=== PATIENT | female | born 1960 | race Caucasian/White ===

== ENCOUNTER 2023-02-06 09:40 | Outpatient (AMB) | payer OTHER, SELFPAY ==
--- NOTE | 2023-02-06 10:03 | MHC.PC.OV ---
Vital Signs 02/06/23 10:05 Height 5 ft 5 in Weight 237 lb 8 oz BMI 39.5 BP 124/66 Blood Pressure Location Lt brachial Position Sitting Pulse 57 Pulse Source Pulse Oximeter Pulse Oximetry (%) 97 Oxygen Delivery Method Room Air Intake Visit Reasons: New Patient/ Med review/ Ortho referral/ Lt wrist Intake Note: pt is here for new patient to establish care, needs medication review, ortho referral for left wrist Aix Administrator Required: No Accompanied by: Self / Same As Patient Allergies amoxicillin Adverse Reaction (Verified 02/06/23 10:24) rash bactrim Adverse Reaction (Uncoded 02/06/23 10:24) rash Medication List - Last Reconciled 02/06/23 by Ronda Sanchez MD cholecalciferol (vitamin D3) 25 mcg PO DAILY irbesartan 150 mg PO DAILY [id number]-yntc-FA-vit K-lut 8 mg iron-400 mcg-50 mcg (Centrum Silver Women) 1 tab PO DAILY Tobacco use date assessed: 02/06/23 Dental Screening Dental Screen Date: 02/06/23 Did you have a dental visit in the last 12 months?: No Did you have a dental problem in the last 6 months where you did not have access to dental care?: No Was dental information given to patient?: Patient declined HPI New Patient/ Med review/ Ortho referral/ Lt wrist HPI Details 62-year-old lady, with hypertension and superimposed white coat hypertension has prediabetes, obesity, new to practice, previously been seen at [facility] here to establish care with new PCP, and needs your referral to Orthopedics regarding does not pain in her left wrist joint. This has been present now for the last several years, worse on doing any rotational movements. She was taking Tylenol in the past which affords only temporary relief and has been seen by [facility], again with no improvement of symptoms reported [facility] Medical History (Updated 02/06/23 @ 10:55 by Ronda Sanchez MD) Obesity (BMI 30-39.9) Impaired fasting glucose Chronic pain of left wrist Hx of mammogram History of cholelithiasis Essential hypertension Surgical History (Updated 02/06/23 @ 10:33 by Ronda Sanchez MD) Hx of colonoscopy Hx laparoscopic cholecystectomy Family History (Updated 02/06/23 @ 10:42 by Ronda Sanhcez MD) Father Prostate CA Mother Embolism Deep vein thrombosis (DVT) of left lower extremity Insulin dependent type 1 diabetes mellitus Brother Diabetes mellitus CVA (cerebral vascular accident) Sister Thyroid disorder Social History (Updated 02/06/23 @ 10:09 by Kevin Pires [facility]) Housing: House Alcohol intake: current Alcohol intake frequency: holidays/special occasions only Alcohol type: wine Patient Tobacco Use Status: Former Tobacco user (01/14/1996) e-Cigarette/Vaping Use: Never Used service: No Current occupational status: employed and retired Current occupational exposures/hazards: No Cognitive needs: No Hearing needs: No Vision needs: Yes Female Reproductive History Menstrual Age of Menarche: 13 Menopause type: natural Age of menopause: 49 Date of last pap smear: 09/28/20 ([facility] ) History of abnormal pap smear: No Date of Mammogram: 09/15/22 (08/2021, 08/2020 - all normal - [facility] ) History of abnormal mammogram: No Questionnaire PHQ-9 Over the last 2 weeks, how often have you been bothered by any of the following problems? 1. Little interest or pleasure in doing things: not at all 2. Feeling down, depressed, or hopeless: not at all 3. Trouble falling or staying asleep, or sleeping too much: several days 4. Feeling tired or having little energy: not at all 5. Poor appetite or overeating: not at all 6. Feeling bad about yourself - or that you are a failure or have let yourself or your family down: not at all 7. Trouble concentrating on things, such as reading the newspaper or watching television: not at all 8. Moving or speaking so slowly that other people could have noticed. Or the opposite - being so fidgety or restless that you have been moving around a lot more than usual: not at all 9. Thoughts that you would be better off or of hurting yourself in some way: not at all Total score: 1 Depression Screening Interpretation: Negative 93922 - PHQ-9 Billing: Yes Source: Developed by Drs. Les Ag, Renata Perdomo, Tanner Ren and colleagues, with an educational rupesh from [employer]. Thrive Questionnaire Date Thrive assessed: 02/06/23 I am a: Patient What is your living situation today?: I have a steady place to live Within the past 12 months, did the food you bought not last and you didn't have the money to get more?: Never true Within the past 12 months, did you worry whether your food would run out before you got money to buy more?: Never true Do you have trouble paying for medicines?: No Do you have trouble getting transportation to medical appointments?: No Do you have trouble paying your heating and electricity bill?: No Do you have trouble taking care of your child, family member or friend?: No Do you have trouble with day-to-day activities such as bathing, preparing meals, shopping, managing finances, etc.?: No Are you currently unemployed and looking for a job?: No Are you interested in more education?: No Please select the resources that you would like help with: None Currently or been in a relationship where the following occur: no concerns reported AUDIT C Alcohol Use Questionnaire (AUDIT-C) 1. How often do you have a drink containing alcohol?: Monthly or less 2. How many drinks containing alcohol do you have on a typical day when you are drinking?: 1 or 2 3. How often do you have six or more drinks on one occasion?: Never Total Score: 1 GARRY-7 AMB Questionnaire GARRY-7 Date GARRY - 7 assessed: 02/06/23 Feeling nervous, anxious, or on edge: 0 = Not at all Not being able to stop or control worryin = Not at all Worrying too much about different things: 0 = Not at all Trouble relaxin = Not at all Being so restless that it is hard to sit still: 0 = Not at all Becoming easily annoyed or irritable: 0 = Not at all Feeling afraid as if something awful might happen: 0 = Not at all Total GARRY-7 score (0-4 normal; 5-9 mild; 10-14 moderate; 15-21 severe): 0 Source: Developed by Drs. Les Ag, Renata Perdomo, Tanner Ren and colleagues, with an educational rupesh from [employer]. GARRY-7 Assessment Billing GARRY-7 Assessment Tool: GARRY-7 Assessment 71096 Review of Systems Const Denies chills, Denies fatigue, Denies fever(s), Denies headache(s) and Denies weakness Eyes Details: Dr Luis Pappas , [place] with eye exam 06/2022 ( [facility]) Denies change in vision, Denies eye discharge and Denies itchy eyes ENT Denies dizziness, Denies headache(s), Denies nasal congestion, Denies nasal discharge and Denies sore throat Card Denies chest pain, Denies lightheadedness, Denies palpitations and Denies dyspnea Resp Denies chest congestion, Denies cough, Denies dyspnea and Denies wheezing GI Denies abdominal pain, Denies change in bowel habits and Denies heartburn Denies hematuria, Denies urinary frequency, Denies dysuria and Denies urinary urgency Musc Reports as per HPI Skin/Breast Denies breast pain, Denies breast mass, Denies lesions and Denies rash Neuro Denies dizziness, Denies headache(s) and Denies weakness Psych Denies no additional complaints Endo Denies fatigue and Denies palpitations Ye/Lymph Denies easy bruising Aller/Immun Denies itchy eyes, Denies seasonal rhinorrhea and Denies wheezing Physical exam (Primary Care) Vital Signs: Last Vital Signs Pulse 57 02/06/23 10:05 BP 124/66 02/06/23 10:05 Pulse Ox 97 02/06/23 10:05 Oxygen Delivery Method Room Air 02/06/23 10:05 BMI result Body Mass Index 39.5 Tobacco/Smoking Status: Tobacco use Status Tobacco use date assessed 02/06/23 02/06/23 10:10 Patient Tobacco Use Status Former Tobacco user (01/13/ 02/06/23 10:10 1995) e-Cigarette/Vaping Use Never Used 02/06/23 10:10 PHQ-9: PHQ-9 Score PHQ-9: Total score 1 02/06/23 10:57 Depression Screening Interpretation: Negative Thrive Assessment: Date of Thrive Assessment Date Thrive assessed 02/06/23 02/06/23 10:14 Currently or been in a relationship where the following occur: no concerns reported Const General: no acute distress and alert Orientation/consciousness: patient oriented x3 HENMT Head: Yes normocephalic Ears: external ears normal, TM's normal bilaterally and EAC's normal General nose exam: Normal external nose present and No nasal discharge present Face and sinus: Yes face symmetric Mouth: Normal oral and palatal mucosa present, oropharynx normal and moist mucous membranes Eyes General: appearance normal, both eyes and all related structures Eyelids: Yes eyelids normal Conjunctivae: conjunctivae normal Sclerae: sclerae normal Pupils: Equal, round and reactive pupils present EOM: EOMs intact bilaterally Neck Neck: Yes full ROM, Yes no lymphadenopathy and Yes supple Resp Effort & Inspection: normal respiratory effort and able to speak in complete sentences Auscultation: clear to auscultation bilaterally Cardio Rate: regular rate Rhythm: regular rhythm Heart sounds: S1 normal heart sound present and S2 normal heart sound present GI Palpation (GI): Soft to palpation, nontender, no guarding and no masses Auscultation: normal bowel sounds Skin General skin exam: no rashes or lesions noted Neuro General: patient oriented x3, gait normal, moves all extremities, Normal light touch and pain sensation, no focal motor deficits and CN's II-XI intact bilaterally Cranial nerves: Yes Equal, round and reactive pupils present Cognition (Neuro): normal cognition Gait exam (Neuro): Normal gait present Motor exam (neuro): 5/5 motor strength present throughout Extrem Other: Pain with range of motion left wrist joint, no gross bone deformity or joint swelling seen General: Yes normal to inspection, Yes no pedal edema and Yes normal gait Psych Appearance: grossly normal and well kempt Mental Status: mental status grossly normal Speech and movement: Normal speech and movement present Affect: normal affect Attitude: cooperative Thought process: Normal thought process present Thought content: Normal thought content present Insight: Good insight present (Psych) Judgement: Good judgement present (Psych) Assessment and Plan Assessment & Plan (1) Chronic pain of left wrist: Code(s): M25.532 - Pain in left wrist; G89.29 - Other chronic pain Plan: Referred to hand surgeon for further evaluation management (2) Colon cancer screening: Code(s): Z12.11 - Encounter for screening for malignant neoplasm of colon Plan: Referred to [facility] for her screening colonoscopy (3) Essential hypertension: Code(s): I10 - Essential (primary) hypertension Plan: Blood pressure at goal of less than 130/80. Continue with he irbesartan 150 mg daily Reinforced importance of following a low sodium diet, getting regular exercise, and lowering stress levels. (4) Impaired fasting glucose: Code(s): R73.01 - Impaired fasting glucose Plan: Fasting basic metabolic panel and hemoglobin A1c ordered. Impaired glucose metabolism O2 at risk for developing diabetes mellitus type 2, as well as heart attack and stroke later on. Lifestyle changes at just weight loss, healthy eating habits, and regular exercise are important, and can prevent the progression to diabetes (5) Obesity (BMI 30-39.9): Code(s): E66.9 - Obesity, unspecified Plan: Discussed need for increase activity and weight reduction. Recommended focusing on improving your health instead of dieting. : Eat Mediterranean diet, limit foods high in fat, sugar, and calories, eat slowly, pay attention to portion sizes, plan your meals ahead of time, start regular physical activity 150 minutes of moderate intensity exercise or 90 minutes/week of vigorous exercise and increase water intake. Orders: Orders Lipid Panel 02/06/23 R73.01 - Impaired fasting glucose, I10 - Essential (primary) hypertension, E66.9 - Obesity, unspecified, Z13.220 - Encounter for screening for lipoid disorders, Z78.0 - Asymptomatic menopausal state Vitamin D 25-OH Total 02/06/23 R73.01 - Impaired fasting glucose, I10 - Essential (primary) hypertension, E66.9 - Obesity, unspecified, Z13.220 - Encounter for screening for lipoid disorders, Z78.0 - Asymptomatic menopausal state Alanine Aminotransferase 02/06/23 R73.01 - Impaired fasting glucose, I10 - Essential (primary) hypertension, E66.9 - Obesity, unspecified, Z13.220 - Encounter for screening for lipoid disorders, Z78.0 - Asymptomatic menopausal state Hemoglobin A1c 02/06/23 R73.01 - Impaired fasting glucose, I10 - Essential (primary) hypertension, E66.9 - Obesity, unspecified, Z13.220 - Encounter for screening for lipoid disorders, Z78.0 - Asymptomatic menopausal state Basic Metabolic Panel Fasting 02/06/23 R73.01 - Impaired fasting glucose, I10 - Essential (primary) hypertension, E66.9 - Obesity, unspecified, Z13.220 - Encounter for screening for lipoid disorders, Z78.0 - Asymptomatic menopausal state Aspartate Amino Transferase 02/06/23 R73.01 - Impaired fasting glucose, I10 - Essential (primary) hypertension, E66.9 - Obesity, unspecified, Z13.220 - Encounter for screening for lipoid disorders, Z78.0 - Asymptomatic menopausal state Referrals Gastroenterology Referral Z12.11 - Encounter for screening for malignant neoplasm of colon Hand Surgery Referral M25.532 - Pain in left wrist, G89.29 - Other chronic pain Medications: New irbesartan 150 mg PO DAILY 90 tabs 4RF Coding Level of Care Code New Pt Level 3 (84001) Diagnoses Chronic pain of left wrist M25.532; G89.29 Colon cancer screening Z12.11 Essential hypertension I10 Impaired fasting glucose R73.01 Obesity (BMI 30-39.9) E66.9 Additional Codes GARRY-7 Assessment Billing - GARRY-7 Assessment Tool: GARRY-7 Assessment [id number] ([id number])
[2023-02-06 10:05] VITALS: BP 124/66; PULSE 57; O2SAT 97; BMI 39.5
== END 2023-02-06 11:02 | disposition home or self-care (01) ==
PROVIDERS: Visit Provider Internal Medicine
DX: M25.532 Pain in left wrist (principal); E66.9 Obesity, unspecified; Z68.39 Body mass index [BMI] 39.0-39.9, adult; I10 Essential (primary) hypertension; G89.29 Other chronic pain; R73.01 Impaired fasting glucose
CPT/HCPCS: 99203

== ENCOUNTER 2023-02-06 11:03 | Outpatient (REF) | payer OTHER, SELFPAY ==
[2023-02-06 13:45] LABS: Alanine Aminotransferase 22 U/L (0-31); Anion Gap 12 (12-20); Aspartate Amino Transferase 19 U/L (5-31); Blood Urea Nitrogen 15 mg/dL (9-16); Calcium 10.1 mg/dL (8.4-10.2); Carbon Dioxide 29 mmol/L (22-29); Chloride 104 mmol/L (96-108); Cholesterol 208 mg/dL; Estimated Glomerular Filt Rate 58; Glucose Fasting 109 mg/dL (60-99); HDL Cholesterol 64 mg/dL; LDL Cholesterol Calculated 131 mg/dl; Potassium 4.7 mmol/L (3.3-5.1); Sodium 140 mmol/L (135-145); Triglycerides 66 mg/dL
[2023-02-06 13:57] LABS: Estimated Average Glucose 120 mg/dL; Hemoglobin A1c % 5.8 %
[2023-02-06 14:05] LABS: Vitamin D 25-OH Total 65.4 ng/mL (>30)
== END 2023-02-06 11:04 | disposition home or self-care (01) ==
LOC: HO.HMGCLDS 11:03
PROVIDERS: PCP Internal Medicine; Visit Provider Internal Medicine
DX: Z13.220 Encounter for screening for lipoid disorders (principal); E66.9 Obesity, unspecified; I10 Essential (primary) hypertension; R73.01 Impaired fasting glucose; Z78.0 Asymptomatic menopausal state
CPT/HCPCS: 36415; 80048; 80061; 82306; 83036; 84450; 84460

== ENCOUNTER 2023-03-16 11:24 | Outpatient (AMB) | payer OTHER, SELFPAY ==
--- NOTE | 2023-03-16 11:26 | A.OFFVIS_ITS ---
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 Patient reports 6 weeks of OT with no relief. She states that she took 2 weeks of melacame which didn't help, also used medication cream. Hx of cortisone injections with no relief. Patient reports her pain is more on the volar aspect of the wrist and id she moves it a certain way she feels a burning sensation on her forearm. 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 The patient was followed by [facility], Dr. Fidel Marquez, in 05/2022. She was being treated for arthralgia of the ulna, radius, and wrist consistent with mild tendinitis along the wrist. At the time she had no signs to suggest inflammatory arthritis, per the clinic?s notes. She was working on an at home exercise program. She was later seen by a PCP on 02/06/2023 where she reported pain in the left wrist for several years with increased pain with rotational movements. She reports her pain is located more on the volar aspect of the left wrist. She claims she has a burning sensation in the left forearm. She reports increased pain in the last 2 weeks. She has been taking Aleve for the last two weeks. She states she has no pain when the wrist is straight but pressure with rotation of the wrist that radiates up the arm. 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 Patient confirms participating in 6 weeks of occupational therapy with no relief. Patient confirms the use of Meloxicam for 2 months with no relief. The use of medicated topical cream. Patient has a history of cortisone injections with no relief. She reports she was supposed to see Dr. Vázquez tomorrow, 03/17/2023, but her appointment with moved for today. [facility] Medical History (Updated 03/16/23 @ 12:04 by Jenn Lorenzo) Obesity (BMI 30-39.9) Impaired fasting glucose Chronic pain of left wrist Hx of mammogram History of cholelithiasis Essential hypertension Surgical History (Updated 02/06/23 @ 10:33 by Ronda Sanchez MD) Hx of colonoscopy Hx laparoscopic cholecystectomy Family History (Updated 02/06/23 @ 10:42 by Ronda Sanchez MD) Father Prostate CA Mother Embolism Deep vein thrombosis (DVT) of left lower extremity Insulin dependent type 1 diabetes mellitus Brother Diabetes mellitus CVA (cerebral vascular accident) Sister Thyroid disorder Social History Housing: House Alcohol intake: current Alcohol intake frequency: holidays/special occasions only Alcohol type: wine Patient Tobacco Use Status: Former Tobacco user (01/14/1996) e-Cigarette/Vaping Use: Never Used service: No Current occupational status: employed and retired Current occupational exposures/hazards: No Cognitive needs: No Hearing needs: No Vision needs: Yes Female Reproductive History Menstrual Age of Menarche: 13 Review of Systems Const All systems reviewed & are unremarkable except as noted in HPI and below Physical Exam Vital Signs: BMI result Body Mass Index 39.4 Const General: cooperative and no acute distress Orientation/consciousness: patient oriented x3 Resp Effort & Inspection: normal respiratory effort and able to speak in complete sentences Cardio Peripheral pulses: Peripheral pulses 2+ throughout Skin General skin exam: no rashes or lesions noted Neuro General: patient oriented x3 Extrem Other: Left wrist: No ecchymosis, erythema, or edema. Burning sensation accompanied by pain with wrist flexion and extension that is limited. Able to perform full finger flexion, extension, abduction, adduction, finger cross, okay sign, and thumbs up without deficit. Tenderness to palpation at the proximal carpals. NVI. Assessment & Plan Assessment & Plan (1) Osteoarthritis of left wrist: Code(s): M19.032 - Primary osteoarthritis, left wrist Qualifiers: Osteoarthritis type: unspecified Qualified Code(s): M19.032 - Primary osteoarthritis, left wrist Plan Ms. Herbert is a 62-year-old left hand dominant female who presents in the office today, as a new patient, for an evaluation of left wrist pain. The patient was followed by [facility], Dr. Fidel Marquez, in 05/2022. She was being treated for arthralgia of the ulna, radius, and wrist consistent with mild tendinitis along the wrist. At the time she had no signs to suggest inflammatory arthritis, per the clinic?s notes. She was working on an at home exercise program. She was later seen by a PCP on 02/06/2023 where she reported pain in the left wrist for several years with increased pain with rotational movements. She reports her pain is located more on the volar aspect of the left wrist. She claims she has a burning sensation in the left forearm. She reports increased pain in the last 2 weeks. She has been taking Aleve for the last two weeks. She states she has no pain when the wrist is straight but pressure with rotation of the wrist that radiates up the arm. 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 Patient confirms participating in 6 weeks of occupational therapy with no relief. Patient confirms the use of Meloxicam for 2 months with no relief. The use of medicated topical cream. Patient has a history of cortisone injections with no relief. She reports she was supposed to see Dr. Vázquez tomorrow, 03/17/2023, but her appointment with moved for today. Due to the severity of the arthritis the patient will be referred to see Dr. Vázquez for further evaluation and treatment of the left wrist arthritis as the patient has tried and failed all conservative treatments.. Dr. Vázquez has opening on Thursday03/18/2023. Follow up will be with Dr. Vázquez as soon as possible, or sooner if needed. X-rays of the left wrist obtained while in the office today and reviewed by me, Lisa Pompa PA-C, revealed significant arthritis of the left distal radius with joint collapse. Orders: Orders XR wrist LT min 3V 03/16/23 M25.532 - Pain in left wrist Patient Instructions: Scribed for Lisa Pompa PA-C by Jenn Lorenzo manager medical device, on 03/16/2023 at 11:28 am, EST. Coding Level of Care Code New Pt Level 4 (79142) Diagnoses Osteoarthritis of left wrist, unspecified osteoarthritis type M19.032 Osteoarthritis type: unspecified
[2023-03-16 11:34] VITALS: BMI 39.4
== END 2023-03-16 12:03 | disposition home or self-care (01) ==
PROVIDERS: PCP Internal Medicine; Visit Provider Physician Assistant
DX: M19.032 Primary osteoarthritis, left wrist (principal)
CPT/HCPCS: 99203

== ENCOUNTER 2023-03-16 15:30 | Outpatient (REF) | payer OTHER, SELFPAY ==
--- NOTE | ~2023-03-16 | XR_ITS ---
EXAMINATION: XR WRIST, LEFT CLINICAL INFORMATION: Pain COMPARISON: Wrist radiographs 05/05/2022 TECHNIQUE: PA, lateral, and oblique views of the left wrist. FINDINGS: No acute fracture or dislocation. Degenerative changes of the wrist with loss of radiocarpal joint space. There is positive ulnar variance with subchondral cystic change in the lunate which could be seen in the setting of ulnar impaction syndrome. Soft tissues are unremarkable. XR/XR wrist LT min 3V IMPRESSION: 1. There is positive ulnar variance with subchondral cystic change in the lunate which could be seen in the setting of ulnar impaction syndrome with degenerative changes of the wrist and loss of radiocarpal joint space. 2. No acute fracture or dislocation.
== END 2023-03-16 15:31 | disposition home or self-care (01) ==
LOC: HO.HOSX 15:30
PROVIDERS: Visit Provider Physician Assistant
DX: M25.532 Pain in left wrist (principal)
CPT/HCPCS: 73110

== ENCOUNTER 2023-03-17 11:16 | Outpatient (REF) | payer OTHER, SELFPAY ==
--- NOTE | ~2023-03-17 | XR_ITS ---
EXAMINATION: XR WRIST, RIGHT CLINICAL INFORMATION: Pain COMPARISON: None available. TECHNIQUE: PA, lateral, and oblique views of the right wrist. FINDINGS: There is right wrist deformity due to ulnar plus variance, but without interosseous space widening or osseous impaction. There is mild periarticular osteopenia in metacarpophalangeal joints. Soft tissues are unremarkable. XR/XR wrist RT min 3V IMPRESSION: Mild increased deformity due to ulna plus variance and periarticular osteopenia
== END 2023-03-17 11:17 | disposition home or self-care (01) ==
LOC: HO.HOSX 11:16
PROVIDERS: Visit Provider Orthopaedic Surgery
DX: M25.531 Pain in right wrist (principal)
CPT/HCPCS: 73110

== ENCOUNTER 2023-03-18 07:56 | Outpatient (AMB) | payer OTHER, SELFPAY ==
--- NOTE | 2023-03-18 08:19 | A.OFFVIS_ITS ---
Intake Vital Signs 03/18/23 08:27 Height 5 ft 5 in Weight 237 lb BMI 39.4 Intake Visit Reasons: OV, Discuss possible surgery per Intake Note: Christy 62 yr old left hand dominant female presents today for her Osteoarthritis of left wrist. Patient states she has tried and failed Meloxicam for 2 months, OT, bracing and also has a hx of injection. Last seen with Amos Gonzalez who would like patient to be further evaluated of her Osteoarthritis of left wrist . Allergies amoxicillin Adverse Reaction (Verified 03/18/23 08:23) rash bactrim Adverse Reaction (Uncoded 03/18/23 08:23) rash HPI OV, Discuss possible surgery per HPI Details Christy is a 62 year old left hand dominant woman who presents to discuss her left wrist OA. She has pain with any use of her left wrist, in the volar aspect of her wrist, and radiates dorsally and proximally to the dorsal forearm. Her pain is worse with pushing, pulling, or rotation. She says this has been present for several years, since ~2019, and has been worsening over time. 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 She says this is difficult for her and involves frequent heavy lifting, pushing, and pulling activities. 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 She has been able to modify her activities somewhat with the help of OT to reduce her pain. She found no relief from injections at an outside clinic, NSAIDs, or from OT. She also reports having new sensations of tingling in her left hand, primarily in the middle, ring, and small fingers. She says this happens intermittently throughout the week. [facility] Medical History (Updated 03/18/23 @ 09:00 by Aravind Blum) Obesity (BMI 30-39.9) Impaired fasting glucose Chronic pain of left wrist Hx of mammogram History of cholelithiasis Essential hypertension Surgical History (Updated 02/06/23 @ 10:33 by Ronda Sanchez MD) Hx of colonoscopy Hx laparoscopic cholecystectomy Family History (Updated 02/06/23 @ 10:42 by Ronda Sanchez MD) Father Prostate CA Mother Embolism Deep vein thrombosis (DVT) of left lower extremity Insulin dependent type 1 diabetes mellitus Brother Diabetes mellitus CVA (cerebral vascular accident) Sister Thyroid disorder Social History Housing: House Alcohol intake: current Alcohol intake frequency: holidays/special occasions only Alcohol type: wine Patient Tobacco Use Status: Former Tobacco user (01/14/1996) e-Cigarette/Vaping Use: Never Used service: No Current occupational status: employed and retired Current occupational exposures/hazards: No Cognitive needs: No Hearing needs: No Vision needs: Yes Female Reproductive History Menstrual Age of Menarche: 13 Review of Systems Const All systems reviewed & are unremarkable except as noted in HPI and below Physical Exam Vital Signs: BMI result Body Mass Index 39.4 Const General: cooperative, healthy appearing and no acute distress Orientation/consciousness: patient oriented x3 HEENT Head: Yes normocephalic and Yes atraumatic Eyes EOM: EOMs intact bilaterally Resp Effort & Inspection: normal respiratory effort and able to speak in complete sentences Cardio Jugular venous distension: no JVD Skin General skin exam: turgor normal Rashes: no rashes Neuro General: patient oriented x3 Extrem Other: Evaluation of Left Upper Extremity: The patient is alert, oriented, and in no acute distress Neuro: Median, Ulnar, Radial nerves motor and sensory intact and sensation is normal to the tips of all digits Vascular: Cap refill brisk ROM: She can make a fist and extend all her digits She can make a tight fist with good strength and no pain. Skin: No lacerations or abrasions. General: No Ecchymosis. No Erythema or evidence of infection. She demonstrates that she gets pain over the volar aspect of her wrist, then radiating across the radial forearm dorsally and proximally to the dorsal forearm. This is her main complaint. No tenderness over the 1st dorsal compartment Negative Rafael test bilaterally No tenderness over the basal joint She has some mild tenderness to palpation over the FCR tendon. More importantly she demonstrates that this is where she seems to have trouble with pain when she is performing activities and then after heavy activities. She also demonstrates that she gets some on the ulnar volar aspect of her wrist, though the FCU tendon was not particularly tender today. No tenderness over the distal radius with the dorsal aspect of the radiocarpal joint. No tenderness over the DRUJ, and no tenderness specifically over the radial lunate aspect of the radiocarpal joint. She also indicates that she normally does not get pain in this area and it is not her problem. She has smooth and symmetrical prono-supination bilaterally without pain. She can ulnarly deviate her wrists and this does not cause pain. No evidence of ulnar impingement either in history or physical exam Radiographs: 3 views of the right wrist were taken and viewed by me today in clinic, and compared to her left wrist views from 03/16/23. They show no fractures or dislocations. 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 She does have some cystic changes in the left lunate, and also some in the right lunate but I do not see much in the way of arthritic changes at this point. Psych Appearance: grossly normal Affect: normal affect Attitude: cooperative Assessment & Plan Assessment & Plan (1) Bilateral Madelung's deformity: Code(s): Q74.0 - Other congenital malformations of upper limb(s), including shoulder girdle (2) Left wrist tendinitis: Code(s): M77.8 - Other enthesopathies, not elsewhere classified Plan Assessment & Plan: 1. Left volar wrist flexor tendinitis Primarily of the FCR tendon, with some FCU tendon involvement Negative Rafael test I educated her about this condition I believe tendinitis is the most likely etiology of her pain. I discussed activity modification, she should limit or avoid any activities which cause her pain, when possible. 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 She was fitted for a new velcro wrist splint to wear with heavy activities, she is not to wear her brace constantly She should continue to maintain her wrist ROM at home I discussed the safe use of NSAIDs and Tylenol for pain management. It sounds like she is likely taking more than she needs right now trying to ?stay on top of it? and I have asked her to be a little more mindful and tried a bring that down and an use it more for when she is symptomatic. If her symptoms persist or worsen she can follow up to discuss treatment options Otherwise she can follow up prn It is possible she may benefit from more OT in the future to help her with learning how to do heavier tasks in a way that is less troublesome. If she continues to have pain that we cannot identify, and it is possible she may benefit from an MRI. I do not think we need 1 at this time. 2. Left wrist Madelung's deformity 3. Right wrist Madelung's deformity I do not believe her Madelung deformities are the source of her wrist pain at all. History and exam do not support any kind of ulnar impingement. She has got smooth prono-supination without pain. She is not tender over the dorsal aspect of the radiocarpal joint, the DRUJ or the ulnocarpal joint. I educated her about this condition Gladly, No treatment is indicated. Scribed for Disha Vázquez MD by Aravind Blum, medical assistant per diem, on 03/18/23 at 8:45 AM, EST. Orders: Orders XR wrist RT min 3V Today M25.531 - Pain in right wrist Coding Level of Care Code New Pt Level 4 (62162) Diagnoses Bilateral Madelung's deformity Q74.0 Left wrist tendinitis M77.8
[2023-03-18 08:27] VITALS: BMI 39.4
== END 2023-03-18 09:05 | disposition home or self-care (01) ==
PROVIDERS: PCP Internal Medicine; Visit Provider Orthopaedic Surgery
DX: Q74.0 Other congenital malformations of upper limb(s), including shoulder girdle (principal); M77.8 Other enthesopathies, not elsewhere classified
CPT/HCPCS: 99214

== ENCOUNTER → 2023-03-18 07:56 | Outpatient (BNVA) | payer OTHER, SELFPAY | PROVIDERS: PCP Internal Medicine; Visit Provider Orthopaedic Surgery | DX: M77.8 Other enthesopathies, not elsewhere classified (principal); Q74.0 Other congenital malformations of upper limb(s), including shoulder girdle | CPT/HCPCS: 99212 ==

== ENCOUNTER 2023-05-20 09:19 | Outpatient (AMB) | payer OTHER, SELFPAY ==
--- NOTE | 2023-05-20 09:51 | A.OFFPC_ITS ---
Vital Signs 05/20/23 09:52 Height 5 ft 5 in Weight 240 lb 4 oz BMI 40.0 BP 138/86 Blood Pressure Location Lt brachial Position Sitting Pulse 53 Pulse Source Pulse Oximeter Pulse Oximetry (%) 99 Oxygen Delivery Method Room Air Intake Visit Reasons: Annual Pe Intake Note: pt is here for her Annual PE Allergies amoxicillin Adverse Reaction (Verified 05/20/23 10:09) rash bactrim Adverse Reaction (Uncoded 05/20/23 10:09) rash Medication List - Last Reconciled 05/20/23 by Ronda Sanchez MD cholecalciferol (vitamin D3) 25 mcg PO DAILY irbesartan 150 mg PO DAILY rutvphlt-tdn-glaf-FA-vit K-lut 8 mg iron-400 mcg-50 mcg (Centrum Silver Women) 1 tab PO DAILY Tobacco use date assessed: 05/20/23 Dental Screening Dental Screen Date: 05/20/23 Did you have a dental visit in the last 12 months?: No Did you have a dental problem in the last 6 months where you did not have access to dental care?: No Was dental information given to patient?: No HPI Annual Pe HPI Details 62-year-old lady with history of prediab etes, hypertension, Madelung's deformity and hyperlipidemia, here today for physical exam. . She is up-to-date with her screening mammogram done earlier this year and had a bone density scan ordered by her previous PCP last 08/05/2012, which showed presence of normal bone density in lumbar spine left femoral neck and left femur. She had screening colonoscopy done 04/28/[address] Uribe at [facility] with removal of precancerous polyp, with repeat colonoscopy due again in 2025. She has been complaining of intermittent episode of pain in the ventral aspect of her wrist, which has been present now for the last several years, and occurs at different times. She has been seen and evaluated by H him see orthopedics to diagnosed her to have Madelungs deformity, was advised to just rest her joint, take Tylenol which she has already been doing, avoiding only relief. Patient requesting to be referred to a different hand surgeon for 2nd opinion. [facility] Medical History (Updated 05/20/23 @ 10:30 by Ronda Sanchez MD) Hyperlipidemia Left wrist pain Obesity (BMI 30-39.9) Impaired fasting glucose Chronic pain of left wrist Hx of mammogram History of cholelithiasis Essential hypertension Surgical History Hx of colonoscopy Hx laparoscopic cholecystectomy Family History Father Prostate CA Mother Embolism Deep vein thrombosis (DVT) of left lower extremity Insulin dependent type 1 diabetes mellitus Brother Diabetes mellitus CVA (cerebral vascular accident) Sister Thyroid disorder Social History Housing: House Alcohol intake: current Alcohol intake frequency: holidays/special occasions only Alcohol type: wine Patient Tobacco Use Status: Former Tobacco user (01/14/1996) e-Cigarette/Vaping Use: Never Used service: No Current occupational status: employed and retired Current occupational exposures/hazards: No Cognitive needs: No Hearing needs: No Vision needs: Yes Female Reproductive History Menstrual Age of Menarche: 13 Questionnaire PHQ-9 Over the last 2 weeks, how often have you been bothered by any of the following problems? Depression Screening Interpretation: Negative Depression Screening Done: Yes Source: Developed by Drs. Les Ag, Renata Perdomo, Tanner Ren and colleagues, with an educational rupesh from [employer]. Thrive Questionnaire Date Thrive assessed: 02/06/23 Currently or been in a relationship where the following occur: no concerns reported GARRY-7 AMB Questionnaire GARRY-7 Date GARRY - 7 assessed: 02/06/23 Source: Developed by Drs. Les Ag, Renata Perdomo, Tanner Ren and colleagues, with an educational rupesh from [employer]. Review of Systems Const Denies chills, Denies fatigue, Denies fever(s), Denies headache(s) and Denies weakness Eyes Details: sees Dr Pappas at the [facility], beginning cataracts seen, no glaucoma wears bifocal lenses Denies change in vision, Denies eye discharge and Denies itchy eyes ENT Denies dizziness, Denies headache(s), Denies nasal congestion, Denies nasal discharge and Denies sore throat Card Denies chest pain, Denies lightheadedness, Denies palpitations and Denies dyspnea Resp Denies chest congestion, Denies cough, Denies dyspnea and Denies wheezing GI Denies abdominal pain, Denies change in bowel habits and Denies heartburn Denies hematuria, Denies urinary frequency, Denies dysuria and Denies urinary urgency Musc Reports as per HPI Skin/Breast Denies breast pain, Denies breast mass, Denies lesions and Denies rash Neuro Denies dizziness, Denies headache(s) and Denies weakness Psych Denies no additional complaints Endo Denies fatigue and Denies palpitations Ye/Lymph Denies easy bruising Aller/Immun Denies itchy eyes, Denies seasonal rhinorrhea and Denies wheezing Physical exam (Primary Care) Vital Signs: Last Vital Signs Pulse 53 05/20/23 09:52 BP 138/86 05/20/23 09:52 Pulse Ox 99 05/20/23 09:52 Oxygen Delivery Method Room Air 05/20/23 09:52 BMI result Body Mass Index 40.0 Tobacco/Smoking Status: Tobacco use Status Tobacco use date assessed 05/20/23 05/20/23 09:57 Patient Tobacco Use Status Former Tobacco user (05/20/23 09:51 1995) e-Cigarette/Vaping Use Never Used 05/20/23 09:51 Depression Screening Interpretation: Negative Thrive Assessment: Date of Thrive Assessment Date Thrive assessed 02/06/23 05/20/23 09:51 Currently or been in a relationship where the following occur: no concerns reported Const General: no acute distress and alert Orientation/consciousness: patient oriented x3 HENMT Head: Yes normocephalic Ears: external ears normal, TM's normal bilaterally and EAC's normal General nose exam: Normal external nose present and No nasal discharge present Face and sinus: Yes face symmetric Mouth: Normal oral and palatal mucosa present, oropharynx normal and moist mucous membranes Eyes General: appearance normal, both eyes and all related structures Eyelids: Yes eyelids normal Conjunctivae: conjunctivae normal Sclerae: sclerae normal Pupils: Equal, round and reactive pupils present EOM: EOMs intact bilaterally Neck Neck: Yes full ROM, Yes no lymphadenopathy and Yes supple Resp Effort & Inspection: normal respiratory effort and able to speak in complete sentences Auscultation: clear to auscultation bilaterally Cardio Rate: regular rate Rhythm: regular rhythm Heart sounds: S1 normal heart sound present and S2 normal heart sound present GI Palpation (GI): Soft to palpation, nontender, no guarding and no masses Auscultation: normal bowel sounds General: Yes no CVA tenderness Back/Spine/Pelvis Back: no CVA tenderness and No back tenderness Skin General skin exam: no rashes or lesions noted Neuro General: patient oriented x3, gait normal, moves all extremities, Normal light touch and pain sensation, no focal motor deficits and CN's II-XI intact bilaterally Cranial nerves: Yes Equal, round and reactive pupils present Cognition (Neuro): normal cognition Gait exam (Neuro): Normal gait present Motor exam (neuro): 5/5 motor strength present throughout Extrem Other: Pain with range of motion left wrist joint, no gross bone deformity or joint swelling seen, negative Phalen sign, negative Tinel sign General: Yes normal to inspection, Yes no pedal edema and Yes normal gait Psych Appearance: grossly normal and well kempt Mental Status: mental status grossly normal Speech and movement: Normal speech and movement present Affect: normal affect Attitude: cooperative Thought process: Normal thought process present Thought content: Normal thought content present Assessment and Plan Assessment & Plan (1) Annual visit for general adult medical examination with abnormal findings: Code(s): Z00.01 - Encounter for general adult medical examination with abnormal findings Plan: Will check appropriate labs. Recommended dental visit every 6 months and regular eye exams, at least every 2 years, goes to [facility] [place]. Take adequate calcium in diet and vitamin-D 3 at 2000 IU per cap once a day, in addition to weight-bearing exercises to help maintain good muscle tone and weight control. Instructed to do self-breast exam, and recommended to get yearly mammogram, and bone density scan was ordered, to be done together with mammogram. She is up-to-date with her vaccinations including her COVID booster and flu shot as well as Shingrix vaccine. She had screening colonoscopy done 04/28/[address] Uribe at [facility] with removal of precancerous polyp, with repeat colonoscopy due again in 2025 (2) Left wrist pain: Code(s): M25.532 - Pain in left wrist (3) Obesity (BMI 30-39.9): Code(s): E66.9 - Obesity, unspecified Plan: [facility]erred to [facility] [place] for a 2nd opinion, per patient request. (4) Impaired fasting glucose: Code(s): R73.01 - Impaired fasting glucose Plan: Your fasting blood sugars elevated above 100 mg/dL. Impaired glucose metabolism O2 at risk for developing diabetes mellitus type 2, as well as heart attack and stroke later on. Lifestyle changes at just weight loss, healthy eating habits, and regular exercise are important, and can prevent the progression to diabetes (5) Essential hypertension: Code(s): I10 - Essential (primary) hypertension Plan: . Continue with current medication. Reinforced importance of following a low sodium diet, getting regular exercise, and lowering stress levels. Orders: Orders Hemoglobin A1c 05/20/23 E66.9 - Obesity, unspecified, E78.5 - Hyperlipidemia, unspecified, I10 - Essential (primary) hypertension, R73.01 - Impaired fasting glucose Lipid Panel 05/20/23 E66.9 - Obesity, unspecified, E78.5 - Hyperlipidemia, unspecified, I10 - Essential (primary) hypertension, R73.01 - Impaired fasting glucose Basic Metabolic Panel Fasting 05/20/23 E66.9 - Obesity, unspecified, E78.5 - Hyperlipidemia, unspecified, I10 - Essential (primary) hypertension, R73.01 - Impaired fasting glucose XR DEXA axial skeleton 05/20/23 Z78.0 - Asymptomatic menopausal state Vitamin D 25-OH Total 05/20/23 E66.9 - Obesity, unspecified, E78.5 - Hyperlipidemia, unspecified, I10 - Essential (primary) hypertension, R73.01 - Impaired fasting glucose Referrals Hand Surgery Referral M25.532 - Pain in left wrist Coding Level of Care Code Est Pt Prev Care 40-64y(54210) Diagnoses Annual visit for general adult medical examination with abnormal findings Z00.01 Left wrist pain M25.532 Obesity (BMI 30-39.9) E66.9 Impaired fasting glucose R73.01 Essential hypertension I10
[2023-05-20 09:52] VITALS: BP 138/86; PULSE 53; O2SAT 99; BMI 40.0
== END 2023-05-20 10:49 | disposition home or self-care (01) ==
PROVIDERS: PCP Internal Medicine; Visit Provider Internal Medicine
DX: Z00.00 Encounter for general adult medical examination without abnormal findings (principal); M25.532 Pain in left wrist; E66.9 Obesity, unspecified; Z68.41 Body mass index [BMI] 40.0-44.9, adult; R73.01 Impaired fasting glucose; I10 Essential (primary) hypertension
CPT/HCPCS: 99396

== ENCOUNTER 2023-06-04 08:38 | Outpatient (REF) | payer OTHER, SELFPAY ==
[2023-06-04 12:04] LABS: Estimated Average Glucose 120 mg/dL; Hemoglobin A1c % 5.8 % (<6.0)
[2023-06-04 12:35] LABS: Anion Gap 14 (12-20); Blood Urea Nitrogen 21 mg/dL (9-16); Calcium 9.7 mg/dL (8.4-10.2); Carbon Dioxide 28 mmol/L (22-29); Chloride 103 mmol/L (96-108); Cholesterol 180 mg/dL (<200); Estimated Glomerular Filt Rate 57; Glucose Fasting 117 mg/dL (60-99); HDL Cholesterol 60 mg/dL (>40); LDL Cholesterol Calculated 109 mg/dL (<100); Potassium 4.7 mmol/L (3.3-5.1); Sodium 140 mmol/L (135-145); Triglycerides 55 mg/dL (<150)
[2023-06-04 12:37] LABS: Vitamin D 25-OH Total 65.2 ng/mL (>30)
== END 2023-06-04 08:39 | disposition home or self-care (01) ==
LOC: HO.HMGCLDS 08:38
PROVIDERS: PCP Internal Medicine; Visit Provider Internal Medicine
DX: E66.9 Obesity, unspecified (principal); R73.01 Impaired fasting glucose; E78.5 Hyperlipidemia, unspecified; I10 Essential (primary) hypertension
CPT/HCPCS: 36415; 80048; 80061; 82306; 83036

== ENCOUNTER 2023-08-13 08:58 | Outpatient (REF) | payer OTHER, SELFPAY ==
[2023-08-13 11:53] LABS: Anion Gap 12 (12-20); Blood Urea Nitrogen 18 mg/dL (9-16); Calcium 10.6 mg/dL (8.4-10.2); Carbon Dioxide 30 mmol/L (22-29); Chloride 104 mmol/L (96-108); Cholesterol 186 mg/dL (<200); Estimated Glomerular Filt Rate 57; Glucose Fasting 112 mg/dL (60-99); HDL Cholesterol 55 mg/dL (>40); LDL Cholesterol Calculated 118 mg/dL (<100); Potassium 4.7 mmol/L (3.3-5.1); Sodium 141 mmol/L (135-145); Triglycerides 65 mg/dL (<150)
[2023-08-13 12:10] LABS: Vitamin D 25-OH Total 71.3 ng/mL (>30)
== END 2023-08-13 08:59 | disposition home or self-care (01) ==
LOC: HO.HMGCLDS 08:58
PROVIDERS: PCP Internal Medicine; Visit Provider Internal Medicine
DX: E78.5 Hyperlipidemia, unspecified (principal); E66.9 Obesity, unspecified; R73.01 Impaired fasting glucose; I10 Essential (primary) hypertension; Z78.0 Asymptomatic menopausal state
CPT/HCPCS: 36415; 80048; 80061; 82306

== ENCOUNTER 2023-08-25 10:39 | Outpatient (AMB) | payer OTHER, SELFPAY ==
[2023-08-25 10:43] VITALS: BP 130/76; PULSE 63; O2SAT 98; BMI 38.1
--- NOTE | 2023-08-25 10:43 | MHC.PC.OV ---
Vital Signs 08/25/23 10:43 Height 5 ft 5 in Weight 229 lb 2 oz BMI 38.1 BP 130/76 Blood Pressure Location Rt brachial Position Sitting Pulse 63 Pulse Source Pulse Oximeter Pulse Oximetry (%) 98 Oxygen Delivery Method Room Air Intake Visit Reasons: 4 Month F/U Intake Note: Pt is here today for a 4 month Follow up. Allergies amoxicillin Adverse Reaction (Verified 08/25/23 11:09) rash bactrim Adverse Reaction (Uncoded 08/25/23 11:09) rash Medication List - Last Reconciled 08/25/23 by Ronda Sanchez MD cholecalciferol (vitamin D3) 25 mcg PO DAILY irbesartan 150 mg PO DAILY pgcapmpz-oqk-qlqc-FA-vit K-lut 8 mg iron-400 mcg-50 mcg (Centrum Silver Women) 1 tab PO DAILY Tobacco use date assessed: 08/25/23 Dental Screening Dental Screen Date: 08/25/23 Did you have a dental visit in the last 12 months?: No Did you have a dental problem in the last 6 months where you did not have access to dental care?: No Was dental information given to patient?: No HPI 4 Month F/U HPI Details 62 year old lady with hypertension, obesity, with impaired fasting glucose, here today for follow-up. She has changed her diet, has been eating less carbs, eating more vegetables, whole grain, oatmeal for breakfast, with fruits and nuts , and has stopped doing bedtime snacking patient states that she has lost approximately 10 lb since her last visit here in April 2023. [facility] Medical History Hypercalcemia Hyperlipidemia Left wrist pain Obesity (BMI 30-39.9) Impaired fasting glucose Chronic pain of left wrist Hx of mammogram History of cholelithiasis Essential hypertension Surgical History Hx of colonoscopy Hx laparoscopic cholecystectomy Family History Father Prostate CA Mother Embolism Deep vein thrombosis (DVT) of left lower extremity Insulin dependent type 1 diabetes mellitus Brother Diabetes mellitus CVA (cerebral vascular accident) Sister Thyroid disorder Social History Housing: House Alcohol intake: current Alcohol intake frequency: holidays/special occasions only Alcohol type: wine Patient Tobacco Use Status: Former Tobacco user (01/14/1996) e-Cigarette/Vaping Use: Never Used service: No Current occupational status: employed and retired Current occupational exposures/hazards: No Cognitive needs: No Hearing needs: No Vision needs: Yes Female Reproductive History Menstrual Age of Menarche: 13 Questionnaire PHQ-9 Over the last 2 weeks, how often have you been bothered by any of the following problems? 1. Little interest or pleasure in doing things: not at all 2. Feeling down, depressed, or hopeless: not at all 3. Trouble falling or staying asleep, or sleeping too much: not at all 4. Feeling tired or having little energy: not at all 5. Poor appetite or overeating: not at all 6. Feeling bad about yourself - or that you are a failure or have let yourself or your family down: not at all 7. Trouble concentrating on things, such as reading the newspaper or watching television: not at all 8. Moving or speaking so slowly that other people could have noticed. Or the opposite - being so fidgety or restless that you have been moving around a lot more than usual: not at all 9. Thoughts that you would be better off or of hurting yourself in some way: not at all Total score: 0 Depression Screening Interpretation: Negative Depression Screening Done: Yes 37582 - PHQ-9 Billing: Yes Source: Developed by Drs. Les Ag, Renata Perdomo, Tanner Ren and colleagues, with an educational rupesh from [employer]. Thrive Questionnaire Date Thrive assessed: 08/25/23 I am a: Patient What is your living situation today?: I have a steady place to live Within the past 12 months, did the food you bought not last and you didn't have the money to get more?: Never true Within the past 12 months, did you worry whether your food would run out before you got money to buy more?: Never true Do you have trouble paying for medicines?: No Do you have trouble getting transportation to medical appointments?: No Do you have trouble paying your heating and electricity bill?: No Do you have trouble taking care of your child, family member or friend?: No Do you have trouble with day-to-day activities such as bathing, preparing meals, shopping, managing finances, etc.?: No Are you currently unemployed and looking for a job?: No Are you interested in more education?: No Please select the resources that you would like help with: None Currently or been in a relationship where the following occur: no concerns reported THRIVE Score: 0 AUDIT C Alcohol Use Questionnaire (AUDIT-C) 1. How often do you have a drink containing alcohol?: Never 3. How often do you have six or more drinks on one occasion?: Never Total Score: 0 Score Reviewed/Action Taken: Yes GARRY-7 AMB Questionnaire GARRY-7 Date GARRY - 7 assessed: 08/25/23 Feeling nervous, anxious, or on edge: 0 = Not at all Not being able to stop or control worryin = Not at all Worrying too much about different things: 0 = Not at all Trouble relaxin = Not at all Being so restless that it is hard to sit still: 0 = Not at all Becoming easily annoyed or irritable: 0 = Not at all Feeling afraid as if something awful might happen: 0 = Not at all Total GARRY-7 score (0-4 normal; 5-9 mild; 10-14 moderate; 15-21 severe): 0 Source: Developed by Drs. Les Ag, Renata Perdomo, Tanner Ren and colleagues, with an educational rupesh from [employer] GARRY-7 Assessment Billing GARRY-7 Assessment Tool: GARRY-7 Assessment 38247 Review of Systems Const Denies chills, Denies fatigue, Denies fever(s), Denies headache(s) and Denies weakness Eyes Details: sees Dr Pappas at [facility], beginning cataracts seen, no glaucoma wears bifocal lenses Denies change in vision, Denies eye discharge and Denies itchy eyes ENT Denies dizziness, Denies headache(s), Denies nasal congestion, Denies nasal discharge and Denies sore throat Card Denies chest pain, Denies lightheadedness, Denies palpitations and Denies dyspnea Resp Denies chest congestion, Denies cough, Denies dyspnea and Denies wheezing GI Denies abdominal pain, Denies change in bowel habits and Denies heartburn Denies hematuria, Denies urinary frequency, Denies dysuria and Denies urinary urgency Musc Reports as per HPI Skin/Breast Denies breast pain, Denies breast mass, Denies lesions and Denies rash Neuro Denies dizziness, Denies headache(s) and Denies weakness Psych Denies no additional complaints Endo Denies fatigue and Denies palpitations Ye/Lymph Denies easy bruising Aller/Immun Denies itchy eyes, Denies seasonal rhinorrhea and Denies wheezing Physical exam (Primary Care) Vital Signs: Last Vital Signs Pulse 63 08/25/23 10:43 BP 130/76 08/25/23 10:43 Pulse Ox 98 08/25/23 10:43 Oxygen Delivery Method Room Air 08/25/23 10:43 BMI result Body Mass Index 38.1 Tobacco/Smoking Status: Tobacco use Status Tobacco use date assessed 08/25/23 08/25/23 10:53 Patient Tobacco Use Status Former Tobacco user (01/13/ 08/25/23 10:46 1995) e-Cigarette/Vaping Use Never Used 08/25/23 10:46 PHQ-9: PHQ-9 Score PHQ-9: Total score 0 08/25/23 11:31 Depression Screening Interpretation: Negative Thrive Assessment: Date of Thrive Assessment Date Thrive assessed 08/25/23 08/25/23 10:53 Currently or been in a relationship where the following occur: no concerns reported Const General: no acute distress and alert Orientation/consciousness: patient oriented x3 HENMT Head: Yes normocephalic Ears: external ears normal, TM's normal bilaterally and EAC's normal General nose exam: Normal external nose present and No nasal discharge present Face and sinus: Yes face symmetric Mouth: Normal oral and palatal mucosa present, oropharynx normal and moist mucous membranes Eyes General: appearance normal, both eyes and all related structures Neck Neck: Yes full ROM, Yes no lymphadenopathy and Yes supple Resp Effort & Inspection: normal respiratory effort and able to speak in complete sentences Auscultation: clear to auscultation bilaterally Cardio Rate: regular rate Rhythm: regular rhythm Heart sounds: S1 normal heart sound present and S2 normal heart sound present GI Palpation (GI): Soft to palpation, nontender, no guarding and no masses Auscultation: normal bowel sounds General: Yes no CVA tenderness Back/Spine/Pelvis Back: no CVA tenderness and No back tenderness Skin General skin exam: no rashes or lesions noted Neuro General: patient oriented x3, gait normal, moves all extremities, Normal light touch and pain sensation, no focal motor deficits and CN's II-XI intact bilaterally Cognition (Neuro): normal cognition Gait exam (Neuro): Normal gait present Motor exam (neuro): 5/5 motor strength present throughout Extrem General: Yes normal to inspection, Yes no pedal edema and Yes normal gait Psych Appearance: grossly normal and well kempt Mental Status: mental status grossly normal Speech and movement: Normal speech and movement present Affect: normal affect Attitude: cooperative Thought process: Normal thought process present Thought content: Normal thought content present Results Reviewed Results Reviewed: Name: Christy Herbert Age/Sex: 62/F : 1960 Unit#: [id number] Attend Dr: Ronda Sanchez MD Re08/13/23 Status: DEP REF Location: [facility] Disch: SPEC : [id number] MICHELET: 08/13/23 STATUS: COMP REQ : [id number] RECD: 08/13/23-[address]: Ronda Sanchez MD COMP: 08/13/23 ENTERED: 08/13/23-[address] [facility] [address]: ORDERED: Met Prof Fast, Lipid Panel, Vitamin D 25-OH Test Result Flag Reference Sodium 141 135-145 mmol/L Potassium 4.7 3.3-5.1 mmol/L CL 104 96-108 mmol/L CO2 30 H 22-29 mmol/L Gap 12 12-20 BUN 18 H 9-16 mg/dL Creat 0.99 0.5-1.4 mg/dL EGFR 57 NOTE: For -[place] individuals, multiply the result by 1.210. Chronic Kidney Disease: Estimated GFR < 60 mL/min/1.73m2 Severe Kidney Disease: Estimated GFR < 15 mL/min/1.73m2 FBS 112 H 60-99 mg/dL A fasting glucose from 100-125 mg/dl is considered impaired (pre-diabetes). CA 10.6 # H 8.4-10.2 mg/dL Triglyceride 65 <150 mg/dL Desirable Triglyceride: less than 150 mg/dL Borderline High Triglyceride 150-199 mg/dL High Triglyceride: 200-499 mg/dL Very High Triglyceride: greater than or equal to 5OO mg/dL Cholesterol 186 <200 mg/dL Desirable Cholesterol: less than 200 mg/dL Borderline High Cholesterol: 200-239 mg/dL High Cholesterol: greater than 239 mg/dL LDL Calculated 118 H <100 mg/dL Desirable LDL: less than 100 mg/dL Near Optimal/Above Optimal LDL: 110-129 mg/dL Borderline High LDL: 130-159 mg/dL High LDL: 160-189 mg/dL Very High LDL: greater than or equal to 190 mg/dL HDL 55 >40 mg/dL Desirable HDL: greater than 40 mg/dL Note: This HDL assay may give artificially low results in patients with liver disease. Vit D 25-OH Tot 71.3 >30 ng/mL Health Based Reference Values* < 20 ng/mL Deficient 20-30 ng/mL Insufficient > 30 ng/mL Sufficient Assessment and Plan Assessment & Plan (1) Hypercalcemia: Code(s): E83.52 - Hypercalcemia Plan: Patient noted to have elevated serum calcium on recent labs, will check intact parathyroid hormone and ionized calcium level (2) Impaired fasting glucose: Code(s): R73.01 - Impaired fasting glucose Plan: Your fasting blood sugars were elevated above 100 mg/dL. Ordered a repeat hemoglobin A1c. Impaired glucose metabolism makes you at risk for developing diabetes mellitus type 2, as well as heart attack and stroke later on. Lifestyle changes at just weight loss, healthy eating habits, and regular exercise are important, and can prevent the progression to diabetes (3) Hyperlipidemia: Code(s): E78.5 - Hyperlipidemia, unspecified Qualifiers: Hyperlipidemia type: pure hypercholesterolemia Qualified Code(s): E78.00 - Pure hypercholesterolemia, unspecified Plan: Reviewed recent fasting lipid profile with patient with levels within normal limit . Continue with adherence to low-cholesterol diet and regular exercise, at least 30 minutes 3 to 4 times a week. Advised patient to make healthy food choices, eat more fruits, vegetables, whole grains, wild caught fish and low-fat dairy. Limit amount of meat and fried or fatty food products, as well as processed foods and fast foods. Follow-up scheduled with repeat fasting lipid panel in 04/2024 prior to scheduled physical exam in May. (4) Obesity (BMI 30-39.9): Code(s): E66.9 - Obesity, unspecified Plan: Congratulated her on her weight loss through diet and exercise. Continue with healthy eating habits Recommended focusing on improving health instead of dieting.Limit food high in fat, sugar, and calories. Eat slowly, pay attention to portion sizes, plan your meals ahead of time, start regular physical activity, at least 150 minutes of moderate intensity exercise, or 90 minutes per week of vigorous exercise. Keeping a food diary, tracking what you eat and your physical activity can help assess what improvements you can make. There are many health problems associated with being overweight/obese, so it is important to improve your diet and exercise. There are medications and surgical options available, but Lifestyle changes are the 1st step. (5) Essential hypertension: Code(s): I10 - Essential (primary) hypertension Plan: Blood pressure at goal of less than 130/80. Continue with current medication. Reinforced importance of following a low sodium diet, getting regular exercise, and lowering stress levels. Orders: Orders Basic Metabolic Panel Fasting 05/02/24 E66.9 - Obesity, unspecified, E78.5 - Hyperlipidemia, unspecified, I10 - Essential (primary) hypertension, R73.01 - Impaired fasting glucose Vitamin D 25-OH Total 05/02/24 E66.9 - Obesity, unspecified, E78.5 - Hyperlipidemia, unspecified, I10 - Essential (primary) hypertension, R73.01 - Impaired fasting glucose Calcium, Ionized Today E83.52 - Hypercalcemia Parathyroid Hormone Intact Today E83.52 - Hypercalcemia Hemoglobin A1c Today R73.01 - Impaired fasting glucose Lipid Panel 05/02/24 E66.9 - Obesity, unspecified, E78.5 - Hyperlipidemia, unspecified, I10 - Essential (primary) hypertension, R73.01 - Impaired fasting glucose Aspartate Amino Transferase 05/02/24 E66.9 - Obesity, unspecified, E78.5 - Hyperlipidemia, unspecified, I10 - Essential (primary) hypertension, R73.01 - Impaired fasting glucose Alanine Aminotransferase 05/02/24 E66.9 - Obesity, unspecified, E78.5 - Hyperlipidemia, unspecified, I10 - Essential (primary) hypertension, R73.01 - Impaired fasting glucose Hemoglobin A1c 05/02/24 E66.9 - Obesity, unspecified, E78.5 - Hyperlipidemia, unspecified, I10 - Essential (primary) hypertension, R73.01 - Impaired fasting glucose Coding Level of Care Code Est Pt Level 4 (12204) Diagnoses Hypercalcemia E83.52 Impaired fasting glucose R73.01 Pure hypercholesterolemia E78.00 Hyperlipidemia type: pure hypercholesterolemia Obesity (BMI 30-39.9) E66.9 Essential hypertension I10 Additional Codes GARRY-7 Assessment Billing - GARRY-7 Assessment Tool: GARRY-7 Assessment [id number] ([id number])
== END 2023-08-25 12:01 | disposition home or self-care (01) ==
PROVIDERS: PCP Internal Medicine; Visit Provider Internal Medicine
DX: E83.52 Hypercalcemia (principal); Z68.38 Body mass index [BMI] 38.0-38.9, adult; R73.01 Impaired fasting glucose; E66.9 Obesity, unspecified; E78.00 Pure hypercholesterolemia, unspecified; I10 Essential (primary) hypertension
CPT/HCPCS: 99214

== ENCOUNTER 2023-08-25 11:24 | Outpatient (REF) | payer OTHER, SELFPAY ==
[2023-08-25 15:40] LABS: Estimated Average Glucose 117 mg/dL; Hemoglobin A1c % 5.7 % (<6.0)
[2023-08-25 15:57] LABS: Parathyroid Hormone Intact 46.9 pg/mL (8.7-77.1)
[2023-08-27 15:08] LABS: Calcium, Ionized 5.2 mg/dL (4.7-5.5)
== END 2023-08-25 11:25 | disposition home or self-care (01) ==
LOC: HO.HMGCLDS 11:24
PROVIDERS: PCP Internal Medicine; Visit Provider Internal Medicine
DX: E83.52 Hypercalcemia (principal); R73.01 Impaired fasting glucose
CPT/HCPCS: 36415; 82330; 83036; 83970

== ENCOUNTER 2024-03-30 10:14 | Outpatient (AMB) | payer OTHER, SELFPAY ==
--- NOTE | 2024-03-30 11:01 | AM.OFFWIN_ITS ---
Intake Vital Signs 03/30/24 11:06 Height 5 ft 5 in Weight 228 lb BMI 37.9 BP 122/84 Blood Pressure Location Rt brachial Position Sitting Pulse 62 Pulse Source Pulse Oximeter Pulse Oximetry (%) 98 Oxygen Delivery Method Room Air Intake Visit Reasons: EP-uti? Intake Note: Patient here for burning when urinating which started Thursday and this morning s he notices spots of blood . Patient Tobacco Use Status: Former Tobacco user (01/14/1996) Allergies amoxicillin Adverse Reaction (Verified 03/30/24 11:07) rash bactrim Adverse Reaction (Uncoded 03/30/24 11:07) rash Do you need a note to return to daycare/school/sports/work: No HPI HPI Comments History of Present Illness Details Patient is a 63-year-old female complaining of 4 days of burning with urination, increased frequency of urination and blood in her urine this morning. She denies a history of kidney stones. She denies any low back pain or fevers. She did try drinking some cranberry juice on 4 days ago which seems to alleviate the symptoms for the last 2 days but then this morning the pain, burning and blood came back [facility] Medical History Hypercalcemia Hyperlipidemia Left wrist pain Obesity (BMI 30-39.9) Impaired fasting glucose Chronic pain of left wrist Hx of mammogram History of cholelithiasis Essential hypertension Surgical History Hx of colonoscopy Hx laparoscopic cholecystectomy Family History Father Prostate CA Mother Embolism Deep vein thrombosis (DVT) of left lower extremity Insulin dependent type 1 diabetes mellitus Brother Diabetes mellitus CVA (cerebral vascular accident) Sister Thyroid disorder Social History Housing: House Alcohol intake: current Alcohol intake frequency: holidays/special occasions only Alcohol type: wine Patient Tobacco Use Status: Former Tobacco user (01/14/1996) e-Cigarette/Vaping Use: Never Used service: No Current occupational status: employed and retired Current occupational exposures/hazards: No Cognitive needs: No Hearing needs: No Vision needs: Yes Female Reproductive History Menstrual Age of Menarche: 13 Review of Systems Const All systems reviewed & are unremarkable except as noted in HPI and below Physical Exam Vital Signs: BMI result Body Mass Index 37.9 Const General: cooperative, healthy appearing, comfortable and no acute distress Orientation/consciousness: patient oriented x3 HEENT Head: Yes normal to inspection Ears: hearing grossly normal bilaterally General nose exam: Normal external nose present Face and sinus: Yes normal facial exam Neck Neck: Yes normal visual inspection, Yes trachea midline and Yes supple Resp Effort & Inspection: normal respiratory effort and able to speak in complete sentences Skin General skin exam: no rashes or lesions noted Neuro General: patient oriented x3 Psych Appearance: grossly normal Speech and movement: Normal speech and movement present Attitude: cooperative Thought process: Normal thought process present Insight: Good insight present (Psych) Judgement: Good judgement present (Psych) Assessment & Plan Assessment & Plan (1) UTI (urinary tract infection): Code(s): N39.0 - Urinary tract infection, site not specified Qualifiers: Urinary tract infection type: acute cystitis Hematuria presence: with hematuria Qualified Code(s): N30.01 - Acute cystitis with hematuria Plan: Due to patient's allergies, we will treat with Macrobid. Educated patient on taking medication with food. Plan See above Medications: New nitrofurantoin monohyd/m-cryst 100 mg (Macrobid) must administer with a meal/food 100 mg PO Q12H 5 days 10 caps 0RF Coding Level of Care Code Est Pt Level 3 (11363) Diagnoses Acute cystitis with hematuria N30.01 Urinary tract infection type: acute cystitis Hematuria presence: with hematuria
[2024-03-30 11:06] VITALS: BP 122/84; PULSE 62; O2SAT 98; BMI 37.9
== END 2024-03-30 11:50 | disposition home or self-care (01) ==
PROVIDERS: PCP Internal Medicine; Visit Provider Physician Assistant
DX: Z13.9 Encounter for screening, unspecified (principal); N30.01 Acute cystitis with hematuria

== ENCOUNTER → 2024-03-30 10:14 | Outpatient (BNVA) | payer OTHER, SELFPAY | PROVIDERS: PCP Internal Medicine | DX: N30.01 Acute cystitis with hematuria (principal) | CPT/HCPCS: 81003; 99212 ==

== ENCOUNTER 2024-05-27 11:03 | Outpatient (REF) | payer OTHER, SELFPAY ==
[2024-05-27 13:34] LABS: Estimated Average Glucose 123 mg/dL; Hemoglobin A1C 149.9157 umol/L; Hemoglobin A1c % 5.9 % (<6.0); Total Hemoglobin (HGBA1C) 3664.9708 umol/L
[2024-05-27 13:39] LABS: Alanine Aminotransferase 19 U/L (0-31); Anion Gap 10 (12-20); Aspartate Amino Transferase 22 U/L (5-31); Blood Urea Nitrogen 16 mg/dL (9-16); Calcium 9.3 mg/dL (8.4-10.2); Carbon Dioxide 29 mmol/L (22-29); Chloride 106 mmol/L (96-108); Cholesterol 205 mg/dL (<200); Estimated Glomerular Filt Rate > 60; Glucose Fasting 103 mg/dL (60-99); HDL Cholesterol 59 mg/dL (>40); LDL Cholesterol Calculated 133 mg/dL (<100); Potassium 4.5 mmol/L (3.3-5.1); Sodium 140 mmol/L (135-145); Triglycerides 67 mg/dL (<150)
== END 2024-05-27 11:04 | disposition home or self-care (01) ==
LOC: HO.HMGCLDS 11:03
PROVIDERS: PCP Internal Medicine; Visit Provider Internal Medicine
DX: E78.5 Hyperlipidemia, unspecified (principal); E66.9 Obesity, unspecified; R73.01 Impaired fasting glucose; I10 Essential (primary) hypertension
CPT/HCPCS: 36415; 80048; 80061; 82306; 83036; 84450; 84460

== ENCOUNTER 2024-08-03 11:27 | Outpatient (AMB) | payer OTHER, SELFPAY ==
[2024-08-03 12:24] VITALS: BP 134/84; PULSE 60; RESP 18; TEMP 36.5; O2SAT 95; BMI 37.1
--- NOTE | 2024-08-03 12:24 | A.OFFPC_ITS ---
Vital Signs 08/03/24 12:24 Height 5 ft 5 in Weight 223 lb BMI 37.1 BP 134/84 Blood Pressure Location Lt brachial Position Sitting Respiration 18 Pulse 60 Pulse Source Pulse Oximeter Temp 97.7 F Temp Source Oral Pulse Oximetry (%) 95 Intake Visit Reasons: Annual PE Intake Note: Pt is here today for her PE: Last mammogram 09/22/23, papsmear 09/28/20, colonoscopy 05/03/23 Allergies nitrofurantoin Allergy (Intermediate, Verified 08/03/24 13:01) Rash amoxicillin Adverse Reaction (Verified 08/03/24 12:25) rash bactrim Adverse Reaction (Uncoded 08/03/24 12:25) rash Medication List - Last Reconciled 08/03/24 by Ronda Sanchez MD cholecalciferol (vitamin D3) 25 mcg PO DAILY irbesartan 150 mg PO DAILY Tobacco use date assessed: 08/03/24 Last assessed Fall Risk: 08/03/24 Dental Screening Dental Screen Date: 08/03/24 Did you have a dental visit in the last 12 months?: Yes Did you have a dental problem in the last 6 months where you did not have access to dental care?: No Was dental information given to patient?: Patient has dentist HPI Annual PE HPI Details 63-year-old lady with past medical histo ry of hyperlipidemia, osteoarthritis, obesity, impaired fasting glucose and hypertension, here today for physical exam. She is up-to-date with her screening mammogram, last done 09/22/2023 and has her next screening mammogram already scheduled for this year. She is up-to-date with her cervical cancer screening and pelvic exam, last done at [facility] 09/28/2020 with benign findings. She is up-to-date with her screening colonoscopy done 05/03/23, due again in 2025 due to removal of a sessile serrated polyp. [facility] Medical History (Updated 08/03/24 @ 13:20 by Ronda Sanchez MD) History of bone density study Hypercalcemia Hyperlipidemia Left wrist pain Obesity (BMI 30-39.9) Impaired fasting glucose Chronic pain of left wrist Hx of mammogram History of cholelithiasis Essential hypertension Surgical History Hx of colonoscopy Hx laparoscopic cholecystectomy Family History Father Prostate CA Mother Embolism Deep vein thrombosis (DVT) of left lower extremity Insulin dependent type 1 diabetes mellitus Brother Diabetes mellitus CVA (cerebral vascular accident) Sister Thyroid disorder Social History Housing: House Alcohol intake: current Alcohol intake frequency: holidays/special occasions only Alcohol type: wine Patient Tobacco Use Status: Former Tobacco user (01/14/1996) e-Cigarette/Vaping Use: Never Used service: No Current occupational status: employed and retired Current occupational exposures/hazards: No Cognitive needs: No Hearing needs: No Vision needs: Yes Female Reproductive History Menstrual Age of Menarche: 13 Questionnaire PHQ-9 Over the last 2 weeks, how often have you been bothered by any of the following problems? 1. Little interest or pleasure in doing things: not at all 2. Feeling down, depressed, or hopeless: not at all 3. Trouble falling or staying asleep, or sleeping too much: not at all 4. Feeling tired or having little energy: not at all 5. Poor appetite or overeating: not at all 6. Feeling bad about yourself - or that you are a failure or have let yourself or your family down: not at all 7. Trouble concentrating on things, such as reading the newspaper or watching television: not at all 8. Moving or speaking so slowly that other people could have noticed. Or the opposite - being so fidgety or restless that you have been moving around a lot more than usual: not at all 9. Thoughts that you would be better off or of hurting yourself in some way: not at all Total score: 0 Depression Screening Interpretation: Negative Depression Screening Done: Yes 40756 - PHQ-9 Billing: Yes Source: Developed by Drs. Les Ag, Renata Perdomo, Tanner Ren and colleagues, with an educational rupesh from [email or web address]. Thrive Questionnaire Date Thrive assessed: 07/27/24 I am a: Patient What is your living situation today?: I have a steady place to live Within the past 12 months, did the food you bought not last and you didn't have the money to get more?: Never true Within the past 12 months, did you worry whether your food would run out before you got money to buy more?: Never true Do you have trouble paying for medicines?: No Do you have trouble getting transportation to medical appointments?: No Do you have trouble paying your heating and electricity bill?: No Do you have trouble taking care of your child, family member or friend?: No Do you have trouble with day-to-day activities such as bathing, preparing meals, shopping, managing finances, etc.?: No Are you currently unemployed and looking for a job?: No Are you interested in more education?: No Please select the resources that you would like help with: None Currently or been in a relationship where the following occur: No concerns reported THRIVE Score: 0 AUDIT C Alcohol Use Questionnaire (AUDIT-C) 1. How often do you have a drink containing alcohol?: Monthly or less 2. How many drinks containing alcohol do you have on a typical day when you are drinking?: 1 or 2 3. How often do you have six or more drinks on one occasion?: Never Total Score: 1 GARRY-7 AMB Questionnaire GARRY-7 Date GARRY - 7 assessed: 08/03/24 Feeling nervous, anxious, or on edge: 0 = Not at all Not being able to stop or control worryin = Not at all Worrying too much about different things: 0 = Not at all Trouble relaxin = Not at all Being so restless that it is hard to sit still: 0 = Not at all Becoming easily annoyed or irritable: 0 = Not at all Feeling afraid as if something awful might happen: 0 = Not at all Total GARRY-7 score (0-4 normal; 5-9 mild; 10-14 moderate; 15-21 severe): 0 Source: Developed by Drs. Les Ag, Renata Perdomo, Tanner Ren and colleagues, with an educational rupesh from [email or web address]. GARRY-7 Assessment Billing GARRY-7 Assessment Tool: GARRY-7 Assessment 33507 Review of Systems Const Denies fatigue, Denies fever(s), Denies headache(s) and Denies weakness Eyes Details: Sees [facility], wears bifocals Denies change in vision, Denies eye discharge and Denies itchy eyes ENT Details: gets dental prophylaxis, wears hearing aid in the left ear Denies dizziness, Denies headache(s), Denies nasal congestion, Denies nasal discharge and Denies sore throat Card Denies chest pain, Denies lightheadedness, Denies palpitations and Denies dyspnea Resp Denies chest congestion, Denies cough, Denies dyspnea and Denies wheezing GI Denies abdominal pain, Denies change in bowel habits and Denies heartburn Denies hematuria, Denies urinary frequency, Denies dysuria and Denies urinary urgency Musc Reports no additional complaints Skin/Breast Denies breast pain, Denies breast mass, Denies lesions and Denies rash Neuro Denies dizziness, Denies headache(s) and Denies weakness Psych Denies no additional complaints Endo Denies fatigue and Denies palpitations Ye/Lymph Denies easy bruising Aller/Immun Denies itchy eyes, Denies seasonal rhinorrhea and Denies wheezing Physical exam (Primary Care) Vital Signs: Last Vital Signs Temp 97.7 F 08/03/24 12:24 Pulse 60 08/03/24 12:24 Resp 18 08/03/24 12:24 BP 134/84 08/03/24 12:24 Pulse Ox 95 08/03/24 12:24 BMI result Body Mass Index 37.1 Tobacco/Smoking Status: Tobacco use Status Tobacco use date assessed 08/03/24 08/03/24 12:27 Patient Tobacco Use Status Former Tobacco user (01/13/ 08/03/24 12:27 1995) e-Cigarette/Vaping Use Never Used 08/03/24 12:27 PHQ-9: PHQ-9 Score PHQ-9: Total score 0 08/03/24 16:08 Depression Screening Interpretation: Negative Thrive Assessment: Date of Thrive Assessment Date Thrive assessed 07/27/24 08/03/24 12:27 Currently or been in a relationship where the following occur: No concerns reported Const General: no acute distress and alert Orientation/consciousness: patient oriented x3 HENMT Head: Yes normocephalic Ears: external ears normal, TM's normal bilaterally and EAC's normal General nose exam: Normal external nose present and No nasal discharge present Face and sinus: Yes face symmetric Mouth: Normal oral and palatal mucosa present, oropharynx normal and moist mucous membranes Eyes General: appearance normal, both eyes and all related structures Neck Neck: Yes full ROM, Yes no lymphadenopathy and Yes supple Chest Chest palpation & inspection: normal inspection of the chest Breast/axilla inspection: normal inspection of the breasts Breast/axilla palpation: normal palpation of the breasts Resp Effort & Inspection: normal respiratory effort and able to speak in complete sentences Auscultation: clear to auscultation bilaterally Cardio Rate: regular rate Rhythm: regular rhythm Heart sounds: S1 normal heart sound present and S2 normal heart sound present GI Palpation (GI): Soft to palpation, nontender, no guarding and no masses Auscultation: normal bowel sounds General: Yes no CVA tenderness Back/Spine/Pelvis Back: no CVA tenderness and No back tenderness Skin General skin exam: no rashes or lesions noted Neuro General: patient oriented x3, gait normal, moves all extremities, Normal light touch and pain sensation, no focal motor deficits and CN's II-XI intact bilaterally Cognition (Neuro): normal cognition Gait exam (Neuro): Normal gait present Motor exam (neuro): 5/5 motor strength present throughout Extrem General: Yes normal to inspection, Yes no pedal edema and Yes normal gait Psych Appearance: grossly normal and well kempt Mental Status: mental status grossly normal Speech and movement: Normal speech and movement present Affect: normal affect Attitude: cooperative Thought process: Normal thought process present Thought content: Normal thought content present Results Reviewed Results Reviewed: RUN: 08/03/24 1257 PAGE 1 [facility] [address] [place] [id number] Windows [employer] Doors Installer: Dat Chiang M.D. Specimen Inquiry Name: Christy Herbert Age/Sex: 63/F : 1960 Unit#: [id number] Attend Dr: Ronda Sanchez MD Re05/27/24 Status: DEP REF Location: [facility] Disch: SPEC : [id number] MICHELET: 05/27/24 STATUS: COMP REQ : [id number] RECD: 05/27/[address]: Ronda Sanchez MD COMP: 05/27/24 ENTERED: 05/27/24 [facility] DR: ORDERED: Met Prof Fast, AST, ALT, Lipid Panel, Vitamin D 25-OH Test Result Flag Reference Sodium 140 135-145 mmol/L Potassium 4.5 3.3-5.1 mmol/L CL 106 96-108 mmol/L CO2 29 22-29 mmol/L Gap 10 L 12-20 BUN 16 9-16 mg/dL Creat 0.87 0.5-1.4 mg/dL eGFR > 60 Chronic Kidney Disease: Estimated GFR < 60 mL/min/1.73m2 Severe Kidney Disease: Estimated GFR < 15 mL/min/1.73m2 FBS 103 H 60-99 mg/dL A fasting glucose from 100-125 mg/dl is considered impaired (pre-diabetes). CA 9.3 # 8.4-10.2 mg/dL AST (GOT) 22 5-31 U/L ALT (GPT) 19 0-31 U/L Triglyceride 67 <150 mg/dL Desirable Triglyceride: less than 150 mg/dL Borderline High Triglyceride 150-199 mg/dL High Triglyceride: 200-499 mg/dL Very High Triglyceride: greater than or equal to 5OO mg/dL Cholesterol 205 H <200 mg/dL Desirable Cholesterol: less than 200 mg/dL Borderline High Cholesterol: 200-239 mg/dL High Cholesterol: greater than 239 mg/dL LDL Calculated 133 H <100 mg/dL Desirable LDL: less than 100 mg/dL Near Optimal/Above Optimal LDL: 110-129 mg/dL Borderline High LDL: 130-159 mg/dL High LDL: 160-189 mg/dL Very High LDL: greater than or equal to 190 mg/dL HDL 59 >40 mg/dL Desirable HDL: greater than 40 mg/dL Note: This HDL assay may give artificially low results in patients with liver disease. Vit D 25-OH Tot 72.0 >30 ng/mL Health Based Reference Values* < 20 ng/mL Deficient 20-30 ng/mL Insufficient > 30 ng/mL Sufficient Coding Level of Care Code Est Pt Prev Care 40-64y(34963) Diagnoses Essential hypertension I10 Impaired fasting glucose R73.01 Obesity (BMI 30-39.9) E66.9 Pure hypercholesterolemia E78.00 Hyperlipidemia type: pure hypercholesterolemia Annual visit for general adult medical examination with abnormal findings Z . Additional Codes PHQ-9 - 06973 - PHQ-9 Billing: Yes ([id number]) GARRY-7 Assessment Billing - GARRY-7 Assessment Tool: GARRY-7 Assessment 97233 ([id number]) Assessment & Plan Assessment & Plan (1) Essential hypertension: Code(s): I10 - Essential (primary) hypertension Category: Medical Plan: Blood pressure within acceptable limits.. Continue with your irbesartan 150 mg once daily. Reinforced importance of following a low sodium diet, getting regular exercise, and lowering stress levels. (2) Impaired fasting glucose: Code(s): R73.01 - Impaired fasting glucose Category: Medical Plan: Latest fasting labs showed mildly elevated fasting glucose at 103 mg/dL. Impaired glucose metabolism increases the risk for developing diabetes mellitus type 2, as well as heart attack and stroke later on. Lifestyle changes that promotes weight loss, healthy eating habits, and regular exercise are important, and can prevent the progression to diabetes (3) Obesity (BMI 30-39.9): Code(s): E66.9 - Obesity, unspecified Category: Medical Plan: Advised to adhere to healthy eating habits and get regular exercise in an effort to lose more weight. (4) Hyperlipidemia: Code(s): E78.5 - Hyperlipidemia, unspecified Category: Medical Qualifiers: Hyperlipidemia type: pure hypercholesterolemia Qualified Code(s): E78.00 - Pure hypercholesterolemia, unspecified Plan: Recent fasting labs showed mildly elevated LDL cholesterol at 133 mg per dL with normal triglycerides and HDL cholesterol. Continue with adherence to healthy eating habits, and get at least 30 minutes of exercise daily (5) Annual visit for general adult medical examination with abnormal findings: Code(s): Z. - Encounter for general adult medical examination with abnormal findings Plan: Latest fasting lab results were reviewed with patient. She is up-to-date with her eye exam and gets regular dental cleaning every 6 months. Continue to do self-breast exam, up-to-date with her yearly mammogram, and cervical cancer screening. She is up-to-date with her colon cancer screening, due for a recheck again in 2025 due to removal of a serrated polyp last colonoscopy done in 2022.. Up-to-date with all her vaccines Orders: Orders Lipid Panel 07/23/25 E66.9 - Obesity, unspecified, E78.00 - Pure hypercholesterolemia, unspecified, I10 - Essential (primary) hypertension, R73.01 - Impaired fasting glucose Aspartate Amino Transferase 07/23/25 E66.9 - Obesity, unspecified, E78.00 - Pure hypercholesterolemia, unspecified, I10 - Essential (primary) hypertension, R73.01 - Impaired fasting glucose Alanine Aminotransferase 07/23/25 E66.9 - Obesity, unspecified, E78.00 - Pure hypercholesterolemia, unspecified, I10 - Essential (primary) hypertension, R73.01 - Impaired fasting glucose Vitamin D 25-OH Total 07/23/25 E66.9 - Obesity, unspecified, E78.00 - Pure hypercholesterolemia, unspecified, I10 - Essential (primary) hypertension, R73.01 - Impaired fasting glucose Basic Metabolic Panel Fasting 07/23/25 E66.9 - Obesity, unspecified, E78.00 - Pure hypercholesterolemia, unspecified, I10 - Essential (primary) hypertension, R73.01 - Impaired fasting glucose Medications: Refilled irbesartan 150 mg PO DAILY 30 tabs 0RF
--- OUTSIDE RECORDS SUMMARY | 2024-08-03 13:21 | XMS_ITS | Clinical Summary ---
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 Active Encounters Date Type Department Care Team Description 07/14/2024 2:00 PM EST Office Visit Orthopedic Surgery [address] [phone] Florentino Copeland MD Shoulder impingement (Primary Dx) from Last 3 Months Social History Tobacco Use Types Packs/Day Years Used Date Smoking Tobacco: Never Assessed Comments Unknown Sex and Gender Information Value Date Recorded Sex Assigned at Female 07/16/2024 8:57 AM EST Legal Sex Female 8:35 PM EST Gender Identity Female 07/16/2024 8:57 AM EST Sexual Orientation Not on file Last Filed Vital Signs Vital Sign Reading Time Taken Comments Blood Pressure - - Pulse - - Temperature - - Respiratory Rate - - Oxygen Saturation - - Inhaled Oxygen Concentration - - Weight 99.8 kg (220 lb) 07/14/2024 2:16 PM EST Height 165.1 cm (5' 5 ) 07/14/2024 2:16 PM EST Body Mass Index 36.61 07/14/2024 2:16 PM EST Plan of Treatment Upcoming Encounters Date Type Department Care Team (Late st Contact Info) Description 08/25/2024 10:30 AM EST Office Visit Orthopedic Surgery - [place] [address] [facility] [address] [place] [phone] Florentino Copeland MD [address] [facility] [address] [place] [address] Health Maintenance Due Date Last Done Comments Cervical Cancer Screening: Pap Smear 10/14/1980 Breast Cancer Screening 02/11/2018 02/12/2016 Cholesterol Screening (Lipid Panel) 07/17/2023 02/01/2016 Colorectal Cancer Screening: Colonoscopy 07/17/2023 Depression Screening 07/17/2023 HIV Screening 07/17/2023 Hepatitis C Screening 07/17/2023 Social Influencers of Health Screening 07/17/2023 Hypertension/CHF/CAD Annual BMP Blood Test 07/15/2024 DTaP,Tdap,and Td Vaccines (4 - Td or Tdap) 03/06/2031 03/06/2021, 10/19/2007, 12/20/2004 RSV Immunization Patients 60+ Years Old (1 - 1-dose 75+ series) 10/14/2034 Zoster Vaccines Completed 05/04/2020, 04/22, 03/02/2020 COVID-19 Vaccine Completed 03/17/2024, 03/2023, 01/09/2022, Additional history exists Influenza Vaccine Completed 03/17/2024, , 04/06/2022, Additional history exists HIB Vaccines Aged Out No longer eligi ble based on patient's age to complete this topic HPV Vaccines Aged Out No longer eligi ble based on patient's age to complete this topic Hepatitis A Vaccines Aged Out No long er eligible based on patient's age to complete this topic Hepatitis B Vaccines Aged Out No long er eligible based on patient's age to complete this topic IPV Vaccines Aged Out No longer eligi ble based on patient's age to complete this topic MMR Vaccines Aged Out No longer eligi ble based on patient's age to complete this topic Meningococcal ACWY Vaccine Aged Out N o longer eligible based on patient's age to complete this topic Pneumococcal Vaccine: Pediatrics (0 to 5 Years) and At-Risk Patients (6 to 64 Years) Aged Out No longer eligible based on patient's age to complete this topic RSV Immunization Patients Under 20 months Aged Out No longer eligible based on patient's age to complete this topic Varicella Vaccines Aged Out No longer eligible based on patient's age to complete this topic Procedures Procedure Name Priority Date/Time Associated Diagnosis Comments XR SHOULDER 2+ VIEWS LEFT Routine 07/14/2024 2:12 PM EST Pain from Last 3 Months Results * XR Shoulder 2+ Views Left (07/14/2024 2:12 PM EST) Anatomical Region Laterality Modality Upper Extremities, Shoulder Left Comp uted Radiography Narrative 07/14/2024 2:54 PM EST 4 view x-rays of the left shoulder show preserved glenohumeral and acromioclavicular joint space, no fractures or dislocations, soft tissue shadows appear normal. Impression: Normal study of the left shoulder without radiographic abnormality Florentino Copeland MD IMG XR PROCEDURES Final Result from Last 3 Months Insurance [facility] PUBLIC PLANS Care Teams Geological Engineering Teacher Relationship Specialty Start Date End Date Ronda Sanchez MD [address] [place] [address] PCP - General 06/08/23
--- OUTSIDE RECORDS SUMMARY | 2024-08-03 13:21 | XMS_ITS | Encounter Summary ---
Author Organization [facility] Address [address] [place] [address] Care Team Providers Care Physiology Teacher Name Role Phone Ronda Sanchez MD Primary Care Provider [phone] Reason for Referral * Consultation (Routine) - Pending Review Specialty Diagnoses / Procedures Referred By Seamus diane Referred To Contact Physical Therapy Diagnoses Shoulder impingement Florentino Copeland MD [address] [place] [id number] Phone: tel: fax: Referral ID Status Reason Start Date Expiration Date Visits Requested Visits Authorized [id number] Pending Review Specialty Services Required 07/14/2024 07/14/2025 12 12 Reason for Visit * Reason Comments Consult pain Encounter Details Date Type Department Care Team (Late st Contact Info) Description 07/14/2024 2:00 PM EST Office Visit Orthopedic Surgery - [place] [address] [phone] Florentino Copeland MD [address] [address] Shoulder impingement (Primary Dx) Social History Tobacco Use Types Packs/Day Years Used Date Smoking Tobacco: Never Assessed Comments Unknown Sex and Gender Information Value Date Recorded Sex Assigned at Female 07/16/2024 8:57 AM EST Legal Sex Female 8:35 PM EST Gender Identity Female 07/16/2024 8:57 AM EST Sexual Orientation Not on file documented as of this encounter Last Filed Vital Signs Vital Sign Reading Time Taken Comments Blood Pressure - - Pulse - - Temperature - - Respiratory Rate - - Oxygen Saturation - - Inhaled Oxygen Concentration - - Weight 99.8 kg (220 lb) 07/14/2024 2:16 PM EST Height 165.1 cm (5' 5 ) 07/14/2024 2:16 PM EST Body Mass Index 36.61 07/14/2024 2:16 PM EST documented in this encounter Progress Notes * Florentino Copeland MD - 07/14/2024 2:00 PM EST Date: July 14, 2024 Chief Complaint: left shoulder pain Date of injury/duration of symptoms: atraumatic 1 year Last seen: 06/09/[address] Seaman HPI: Christy Herbert is a 63 y.o. female LHD presenting for Left shoulder pain. This started withoutany known fall or injury. She does not have a history of previous shoulder pain. She said it was gradually present for about a year and then got worse most really in the last 2 weeks. Is associate any numbness or tingling into her hands. She says the pain is deep in her shoulder and she notices it when she reaches behind her back or overhead. She does have some difficulty getting comfortable at night, she has been taking Tylenol extra strength which will last for about 8 hours. She has not had any physical therapy or corticosteroid injections. Progress note from 06/09/[address] Seaman. At that time she was evaluated for left wrist pain. No past medical history on file. No past surgical history on file. No family history on file. Social History Socioeconomic History Marital status: Single Spouse name: Not on file Number of children: Not on file Years of education: Not on file Highest education level: Not on file Occupational History Not on file Tobacco Use Smoking status: Not on file Smokeless tobacco: Not on file Substance and Sexual Activity Alcohol use: Not on file Drug use: Not on file Sexual activity: Not on file Other Topics Concern Not on file Social History Narrative Not on file No current outpatient medications on file. Not on File Objective Focused Exam: Left Upper Extremity Normal shoulder contour Fires Deltoid/Biceps/Triceps/EPL/FPL/FDP/IO SILT Ax/MSC/M/R/U palpable radial pulse AROM FF/abduction/ER/IR: 160/140/60/L5 painful but 5/5 strength with rotator cuff strength testing at 0 and 90 degrees of abduction Supraspinatus: negative Lata's Test Subscapularis: negative Belly Press negative Bear hug with full strength Impingement: positive Neer's Test positive Hawkin's Test AC Joint: No TTP painless cross-body adduction Biceps: negative Speed's test negative Yergason's test Imaging/diagnostic studies: 4 view x-rays of the left shoulder show preserved glenohumeral and Acromioclavicular joint space, no fractures or dislocations, soft tissue shadows appear normal. Impression: Normal study of the left shoulder without radiographic abnormality Medical Decision Making (base on 2 out of 3 elements): Problems Addressed: Low- 1 stable chronic illness Tests Ordered and/or Reviewed: Low Risk Level: Low risk Assessment: Christy Herbert presents with Left shoulder pain consistent with impingement and subacromial bursitis. She has excellent rotator cuff strength on exam today and no history of trauma I discussed the etiology and treatment of shoulder impingement syndrome. I discussed how the rotator cuff inserts on the greater tuberosity. I showed how there is a space between the rotator cuff andacromion. If the space is effectively narrowed either from bursitis or an acromion hook or both, there can be impingement, causing pain. I explained the the treatment for impingement syndrome includes subacromial steroid injections and physical therapy. If the patient is unsatisfied with non-operative treatment of at least 6 weeks, then shoulder arthroscopy with bursectomy, acromioplasty, possible distal clavicle excision, possible subpectoral tenodesis vs tenotomy, and possible rotator cuff is offered. I discussed risk and benefits of corticosteroid injections for shoulder impingement she elected to trial physical therapy prior to a corticosteroid injection we agreed this plan. Plan: Left shoulder impingement -Physical therapy -Follow-up six weeks for re-eavaluation or sooner for new or worsening symptoms Florentino Copeland MD documented in this encounter Plan of Treatment Upcoming Encounters Date Type Department Care Team (Late st Contact Info) Description 08/25/2024 10:30 AM EST Office Visit Orthopedic Surgery - [place] [address] [place] [address] Florentino Copeland MD [address] [place] [address] Scheduled Referrals Name Type Priority Associated Diagnoses Order Schedule Ambulatory referral to Physical Therapy and Athletic Training Outpatient Referral Routine Shoulder impingement 1 Occurrences starting 07/14/2024 until 07/14/2025 documented as of this encounter Visit Diagnoses Diagnosis Shoulder impingement- Primary Other affections of shoulder region, not elsewhere classified documented in this encounter Historical Medications * This list may reflect changes made after this encounter. irbesartan (AVAPRO) 150 mg tablet Take 1 tablet (150 mg total) by mouth 1 (one) time each day. added in this encounter Care Teams Physiology Teacher Relationship Specialty Start Date End Date Ronda Sanchez MD [address] [place] [address] PCP - General 06/08/23 documented as of this encounter
== END 2024-08-03 13:24 | disposition home or self-care (01) ==
PROVIDERS: PCP Internal Medicine; Visit Provider Internal Medicine
DX: Z00.00 Encounter for general adult medical examination without abnormal findings (principal); I10 Essential (primary) hypertension; Z68.37 Body mass index [BMI] 37.0-37.9, adult; E66.9 Obesity, unspecified; R73.01 Impaired fasting glucose; E78.00 Pure hypercholesterolemia, unspecified

== ENCOUNTER → 2024-08-03 11:27 | Outpatient (BNVA) | payer OTHER, SELFPAY | PROVIDERS: PCP Internal Medicine; Visit Provider Internal Medicine | DX: Z00.01 Encounter for general adult medical examination with abnormal findings (principal); I10 Essential (primary) hypertension; R73.01 Impaired fasting glucose; E66.9 Obesity, unspecified; E78.00 Pure hypercholesterolemia, unspecified | CPT/HCPCS: 96127; 99396 ==